=== PATIENT | male | born 1945 | race Two or more races ===

== ENCOUNTER 2017-03-07 10:30 | Inpatient (IN) | payer MEDICARE, OTHER ==
[~2017-03-07] VITALS: Ht 165.1 cm; Wt 63.2 kg
[~2017-03-07 10:30] MED LIST: AMLO-218 PO; ASPI-650 PO; ATEN-51 PO; ATOR40TA21 PO; OMEP20CA16 PO; TAMS-14 PO
[2017-03-07] MEDS ORDERED: SOD CHLORIDE 0.9% 500 ML IV STA (10:35)
--- NOTE | 2017-03-07 10:57 | RADRPT ---
PROCEDURE: CT Brain without. CLINICAL INDICATION: Slurred speech TECHNIQUE: A CT of the brain was performed utilizing axial sections from the skull base through th e vertex without contrast. The scan was reviewed in soft tissue brain and high frequency resolution bone algorithm windows. Images were reviewed on a high-resolution PACS workstation. The exam CTDI = 45.01 mGy, and the DLP = 630.20 mGy-cm. COMPARISON: None available FINDINGS: The ventricles are normal in size and midline in position. There is no intracranial hemorrhage, mid line shift, or mass effect. No abnormal extra-axial fluid collections are identified. There is mil d asymmetric hypoattenuation of the left thalamus. There is hypoattenuation of the right frontal co manolo radiata. The basal cisterns are patent. The posterior fossa is unremarkable. The visualized portions of the orbits are unremarkable. The paranasal sinuses and mastoid air cells are clear. No calvarial fracture or abnormality are identified. The soft tissues are unremarkable . IMPRESSION: 1. Asymmetric hypoattenuation of the left thalamus, suspicious for ischemic changes. Further evalu ation with MRI is recommended. 2. Focal hypoattenuation of the right frontal hector radiata, likely the sequela of prior ischemic injury. This can also be further evaluated with MRI. Critical results were discussed with Dr. Forde on 03/07/2017 at 10:49 AM RPTAT: HH .Malika Solares MD, Date Time Electronically viewed and signed by .Malika Solares MD, MD on 03/07/2017 10:57 .G/
[2017-03-07 10:59] LABS: ADD SCAN DIFF NO
[2017-03-07 11:03] LABS: BASOPHIL # 0.1 10^3/ul (0.0-0.1); BASOPHILS % 0.7 % (0.0-2.0); EOSINOPHILS # 0.3 10^3/ul (0.0-0.5); EOSINOPHILS % 3.4 % (0.0-7.0); HEMATOCRIT 43.3 % (42.0-52.0); HEMOGLOBIN 14.6 g/dl (14.0-18.0); LYMPHOCYTES # 1.5 10^3/ul (0.8-2.9); LYMPHOCYTES % 18.8 % (15.0-51.0); MEAN CORPUSCULAR HEMOGLOBIN 30.7 pg (29.0-33.0); MEAN CORPUSCULAR HGB CONC 33.7 g/dl (32.0-37.0); MEAN PLATELET VOLUME 9.4 fl (7.4-10.4); MONOCYTE # 0.5 10^3/ul (0.3-0.9); MONOCYTES % 6.5 % (0.0-11.0); NEUTROPHIL # 5.7 10^3/ul (1.6-7.5); NEUTROPHILS % 69.9 % (39.0-77.0); PLATELET COUNT 194 10^3/UL (140-415); RED BLOOD COUNT 4.76 10^6/ul (4.70-6.10); RED CELL DISTRIBUTION WIDTH 13.3 % (11.5-14.5); WHITE BLOOD COUNT 8.2 10^3/ul (4.8-10.8)
[2017-03-07 11:22] LABS: ALBUMIN 4.1 g/dl (3.3-4.9); CHLORIDE 102 mmol/L (97-110)
[2017-03-07 11:23] LABS: POTASSIUM 4.1 mmol/L (3.5-5.1); SODIUM 142 mmol/L (135-144)
[2017-03-07 11:25] LABS: ALBUMIN/GLOBULIN RATIO 1.24; ALKALINE PHOSPHATASE 62 IU/L (42-121); ANION GAP 17 (8-16); ASPARTATE AMINO TRANSFERASE 27 IU/L (15-46); BILIRUBIN,INDIRECT 0.9 mg/dl (0-1.1); BILIRUBIN,TOTAL 0.9 mg/dl (0.2-1.3); BLOOD UREA NITROGEN 18 mg/dl (7-20); CARBON DIOXIDE 27 mmol/L (21-31); CREATININE 1.44 mg/dl (0.61-1.24); TOTAL PROTEIN 7.4 g/dl (6.1-8.1)
[2017-03-07 11:26] LABS: ALANINE AMINOTRANSFERASE 35 IU/L (13-69); CALCIUM 9.4 mg/dl (8.4-10.2); GLUCOSE 116 mg/dl (70-220)
[2017-03-07 11:31] LABS: INR 0.98
[2017-03-07] MEDS ORDERED: OMEP40CA6 PO (11:31)
[2017-03-07] MEDS ORDERED: ATEN100T PO (11:31)
[2017-03-07 11:32] LABS: PARTIAL THROMBOPLASTIN TIME 26.4 Sec (25.0-35.0)
[2017-03-07] MEDS ORDERED: TADA5TAB5 PO (11:32)
[2017-03-07] MEDS ORDERED: CLON0.2T5 PO (11:32)
[2017-03-07] MEDS ORDERED: TRAZ50TA18 PO (11:32)
[2017-03-07] MEDS ORDERED: BUPR-34 PO (11:33)
[2017-03-07] MEDS ORDERED: TEMA15CA PO (11:33)
[2017-03-07] MEDS ORDERED: LISI40TA9 PO (11:33)
[2017-03-07] MEDS ORDERED: METO100T13 PO (11:37)
[2017-03-07 11:38] LABS: TROPONIN-I < 0.012 ng/ml (0.00-0.12)
[2017-03-07] MEDS ORDERED: SENN-53 PO (11:38)
--- NOTE | 2017-03-07 11:45 | ERA ---
ER Documentation Chief Complaint Date/Time DATE: 03/07/17 TIME: 11:42 Chief Complaint slurred speech since this morning at 0630, no motor weakness. no droop HPI This 72-year-old male who came in with slurred speech this morning at 630 when he woke up. No motor weakness no droop. Patient says he is slurring his words. It is improved somewhat since the initial problem. Code stroke immediately called. Family at the bedside who corroborates the story. Unknown last well time. He was noted to be normal last night. No chest pain. No other current complaints. ROS All systems reviewed and are negative except as per history of present illness. Medications Home Meds Reported Medications Sennosides* (Senna Lax*) 8.6 Mg Tablet, 1 TAB PO DAILY, TAB 03/07/17 Metoprolol Succinate* (Toprol XL*) 100 Mg Tab.sr.24h, 100 MG PO DAILY, #30 TAB 03/07/17 Bupropion Hcl* (Wellbutrin SR*) 150 Mg Tablet.sa, 150 MG PO DAILY, TAB.SA 03/07/17 Lisinopril* (Lisinopril*) 40 Mg Tablet, 40 MG PO BID, #30 TAB 03/07/17 Temazepam* (Temazepam*) 15 Mg Capsule, 15 MG PO DAILY, CAP 03/07/17 Tadalafil (Cialis) 5 Mg Tablet, 5 MG PO DAILY, TAB 03/07/17 Trazodone Hcl* (Trazodone Hcl*) 50 Mg Tablet, 50 MG PO QHS, #30 TAB 03/07/17 Clonidine Hcl* (Clonidine Hcl*) 0.2 Mg Tablet, 0.2 MG PO DAILY Y for ELEVATED BLOOD PRESSURE, TAB 03/07/17 Omeprazole* (Omeprazole*) 40 Mg Capsule.dr, 40 MG PO DAILY, #30 CAP 03/07/17 Atenolol* (Atenolol*) 100 Mg Tablet, 100 MG PO DAILY, #30 TAB 03/07/17 Atorvastatin (Lipitor) 40 Mg Tablet, 40 MG PO DAILY 07/22/11 Amlodipine Besylate* (Norvasc*) 10 Mg Tablet, 10 MG PO DAILY 07/22/11 Aspirin (Aspirin) 81 Mg Tablet, 81 MG PO DAILY 07/22/11 Tamsulosin Hcl* (Flomax*) 0.4 Mg Cap.sr.24h, 0.4 MG PO DAILY 07/22/11 Discontinued Reported Medications Atenolol* (Atenolol*) 25 Mg Tablet, 25 MG PO DAILY 07/22/11 Omeprazole* (Omeprazole*) 20 Mg Capsule.dr, 20 MG PO DAILY 07/22/11 Allergies Allergies: Coded Allergies: No Known Allergy (Verified , 03/07/17) PMhx/Soc History of Surgery: Yes (S/P CABG 07/23/11) Anesthesia Reaction: No Hx Neurological Disorder: No Hx Respiratory Disorders: No Hx Cardiac Disorders: Yes (HTN) Hx Psychiatric Problems: No Hx Miscellaneous Medical Probl: Yes (HTN, GERD, BPH, Nephrolithiasis, COPD, DVT ) Hx Alcohol Use: Yes (OCCASSIONALLY) Hx Substance Use: No Hx Tobacco Use: Yes (CIGARS 1/2 PACK A DAY) Smoking Status: Current every day smoker Physical Exam Vitals Vital Signs Date Time Temp Pulse Resp B/P Pulse Ox O2 Delivery O2 Flow Rate FiO2 03/07/17 10:55 98.1 83 18 132/83 95 Room Air 03/07/17 10:55 0 03/07/17 10:52 98.1 82 20 132/83 95 Physical Exam Const: [] Head: Atraumatic Eyes: Normal Conjunctiva ENT: Normal External Ears, Nose and Mouth. Neck: Full range of motion..~ No meningismus. Resp: Clear to auscultation bilaterally Cardio: Regular rate and rhythm, no murmurs Abd: Soft, non tender, non distended. Normal bowel sounds Skin: No petechiae or rashes Back: No midline or flank tenderness Ext: No cyanosis, or edema Neur: Awake and alert Psych: Normal Mood and Affect Result Diagram: 03/07/17 1051 03/07/17 1051 Results 24 hrs Laboratory Tests Test 03/07/17 10:51 White Blood Count 8.210^3/ul Red Blood Count 4.7610^6/ul Hemoglobin 14.6g/dl Hematocrit 43.3% Mean Corpuscular Volume 91.0fl Mean Corpuscular Hemoglobin 30.7pg Mean Corpuscular Hemoglobin Concent 33.7g/dl Red Cell Distribution Width 13.3% Platelet Count 83722^3/UL Mean Platelet Volume 9.4fl Neutrophils % 69.9% Lymphocytes % 18.8% Monocytes % 6.5% Eosinophils % 3.4% Basophils % 0.7% Nucleated Red Blood Cells % 0.0/100WBC Neutrophils # 5.710^3/ul Lymphocytes # 1.510^3/ul Monocytes # 0.510^3/ul Eosinophils # 0.310^3/ul Basophils # 0.110^3/ul Nucleated Red Blood Cells # 0.010^3/ul Prothrombin Time 13.0Sec Prothrombin Time Ratio 1.0 INR International Normalized Ratio 0.98 Activated Partial Thromboplast Time 26.4Sec Sodium Level 142mmol/L Potassium Level 4.1mmol/L Chloride Level 102mmol/L Carbon Dioxide Level 27mmol/L Anion Gap 17 Blood Urea Nitrogen 18mg/dl Creatinine 1.44mg/dl Glucose Level 116mg/dl Hemoglobin A1c 5.8% Calcium Level 9.4mg/dl Total Bilirubin 0.9mg/dl Direct Bilirubin 0.00mg/dl Indirect Bilirubin 0.9mg/dl Aspartate Amino Transf (AST/SGOT) 27IU/L Alanine Aminotransferase (ALT/SGPT) 35IU/L Alkaline Phosphatase 62IU/L Troponin I < 0.012ng/ml Total Protein 7.4g/dl Albumin 4.1g/dl Globulin 3.30g/dl Albumin/Globulin Ratio 1.24 Current Medications Medications (Trade) Dose Ordered Sig/Randall Route PRN Reason Start Time Stop Time Status Last Admin Dose Admin Sodium Chloride (NS) 500 ml @ 500 mls/hr Q1H STAT IV 03/07/17 10:35 03/07/17 11:34 DC Procedures/MDM Discuss case with telemetry neuro. Patient not a TPA candidate given onset and timing of symptomology. EKG: Rate/Rhythm: Normal Sinus Rhythm QRS, ST, T-waves: No changes consistent w/ acute ischemia Impression: No evidence of ischemia or arrhythmia Chest X-ray 1V Interpreted by me: Soft Tissue: No acute abnormalities Bones: No acute abnormalities Mediastinum/Cardiac Silhouette/Lungs: No acute abnormalities Medical decision-making: This very pleasant 72-year-old male who has what looks to be a thalamic stroke of uncertain etiology. Patient will be admitted for full stroke workup. Admitted to hospitalist. Critical Care: Time: 45 minutes Treatments/Evaluations: Close monitoring and treatment of unstable vital signs, cardiorespiratory, and neurologic status, while maintaining tight balance of fluid, respiratory, and cardiac interventions. Departure Diagnosis: Primary Impression: Stroke Qualified Code: I63.9 - Cerebrovascular accident (CVA), unspecified mechanism Condition: Serious ANA OCONNOR March 07, 2017 11:45
--- NOTE | 2017-03-07 11:48 | RADRPT ---
PROCEDURE: Chest x-ray CLINICAL INDICATION: Stroke TECHNIQUE: Chest single view COMPARISON: None FINDINGS: There post thoracotomy changes. Mild cardiomegaly and atherosclerotic aortic calcification seen.. The pulmonary vessels are normal in caliber. The lungs are clear. The costophrenic angles are reza p. The visualized bony thorax is unremarkable. IMPRESSION: No acute cardiopulmonary disease. Mild cardiomegaly and atherosclerotic aortic calcification Status post CABG RPTAT: HH .Yannick Mendiola MD, MD Date Time Electronically viewed and signed by .Yannick Mendiola MD, MD on 03/07/2017 11:47 .W/
[2017-03-07 14:00] VITALS: TEMP 98.1
--- NOTE | 2017-03-07 14:12 | RADRPT ---
PROCEDURE: US Carotids. CLINICAL INDICATION: CVA TECHNIQUE: Multiple sonographic of the carotid arteries were obtained utilizing ortiz scale imaging . Color and Doppler imaging was performed. The images were reviewed on a PACS workstation. COMPARISON: No prior studies are available for comparison. FINDINGS: Location Right Left CCA 39 cm/sec 47 cm/sec Prox ICA 56 cm/sec 55 cm/sec Mid ICA 38 cm/sec 54 cm/sec Dist ICA 53 cm/sec 53 cm/sec ECA 83 cm/sec 69 cm/sec ICA/CCA 1.4 1.2 Antegrade flow is seen within the vertebral arteries bilaterally. Mild to moderate scattered plaque is present in the bilateral carotid bulbs, common carotid arteries, and left external carotid artery . No hemodynamically significant stenosis or occlusion is identified. IMPRESSION: 1. Mild to moderate scattered plaque evidence for hemodynamically significant stenosis - validated v elocity measurements with angiographic measurements, velocity criteria are extrapolated from diamete r data as defined by the Society of Radiologists in Ultrasound Consensus Conference Radiology 2003; 229;340-346. This study does indirectly reference the measurement of the distal ICA diameter as the denominator for stenosis measurement. 2. Antegrade flow seen within the vertebral arteries bilaterally. SRU Consensus Conference Criteria for the Diagnosis of Carotid Artery Stenosis Degree of Stenosis, % ICA PSV, cm/sec Plaque Estimate, % ICA/CCA PSV Ratio Normal <125 None <2.0 <50 <125 <50 <2.0 50 69 125-230 >50 2.0-4.0 >70 but less than near occlusion >230 >50 <4.0 Near occlusion High, low, or undetectable Visible Variable Total occlusion Undetectable Visible, no detectable lumen Not applicable *Cartoid artery stenosis: ortiz-scale and Doppler US diagnosis. Society of Radiologists in Ultrasound Consensus Conference. Radiology 2003; 229: 340-346 RPTAT: JJ .John Hampton MD, Date Time Electronically viewed and signed by .John Hampton MD, MD on 03/07/2017 14:12 .A/
[2017-03-07] MEDS: SENNA TAB PO SCH (14:30)
--- NOTE | 2017-03-07 15:43 | HP ---
Date/Time of Note Date/Time of Note DATE: 03/07/17 TIME: 15:27 Assessment/Plan VTE Prophylaxis VTE Prophylaxis Intervention: LMWH Assessment/Plan Assessment/Plan 70-year-old male who presented with slurred speech with the following 1. Highly probable acute left thalamic stroke 2. Probable previous right frontal stroke 3. Known coronary artery disease status post four-vessel CABG 4. Hypertension 5. BPH 6. Depression 7. Dyslipidemia 8. JESSICA rule out chronic kidney disease 9. Tobacco abuse and dependence Plan: 1. We will admit patient to telemetry floor for stroke workup/MRI/2D echo/ neurology consult/aspirin/statin 2. Allow for permissive hypertension. Patient would like his laundry press operator Dr. Seymour to see him while he is here. Will notify him / rule out acute coronary syndrome 3. Resume all other home medications 4. Gentle IV fluid hydration/renally dose all meds/avoid nephrotoxic drugs/if no improvement will do renal ultrasound 5. Smoking Cessation Therapy: Pt. was lectured for greater than 3 minutes on the health risks of continued smoking and the benefits of cessation and this will continue to be reinforced throughout hospitalization. Further interventions will depend on clinical course H2 vidal and subcutaneous Lovenox for prophylaxis Plan of care has been discussed with patient in detail questions have been answered HPI/ROS Admit Date/Time Admit Date/Time March 07, 2017 Hx of Present Illness Presenting complaint: Slurred speech History of presenting complaint: Mr. Dotson is a very interesting 72-year- old male, with a past medical history of high blood pressure, BPH, coronary artery disease status post four-vessel CABG 5 years ago, dyslipidemia and continued heavy tobacco use. The patient tells me that he was in his normal state of health when he went to bed last night, but he awoke at about 6 AM this morning which very slurred speech and speaking in the way people could not understand. He resides with his roommate and when he was communicating with his roommate his roommate noticed that he was yelling more than usual, and he could not understand his speech. His roommate that he was drunk, and eventually able to get out that he might have had a stroke. He however felt that stroke symptoms are more of [employer] findings versus sensory, and hands by the time he had arrived at the emergency room, he was beyond the TPA window. He is being admitted for further stroke workup. Patient does admit to continued tobacco use, even though he has had a history of a four-vessel CABG in the past. He states his 72 and he has done well since. He has no other motor symptoms. He denies fever, denies shortness of breath, denies chest pain , denies palpitations. He has had no falls. He has no motor weakness. He slurred speech has improved somewhat since his being here, but he still mildly present and noticeable on exam. He denies abdominal pain, dysuria, hematuria, denies constipation, denies black stools, denies blood in his stools. ROS 12 point review of system was done and pertinent findings as noted in HPI. PMH/Family/Social Past Medical History 1. High blood pressure 2. BPH 3. Depression 4. Coronary artery disease status post 4 vessel CABG 5. Dyslipidemia 6. Chronic tobacco user Past Surgical History See above Family History Significant Family History: heart disease Social History Patient is a with good family support, states his happiness comes from his grandchildren. Alcohol Use: occasionally Smoking Status: Current every day smoker (Has smoked a pack a day for more than 50 years) Drug Use: none Exam/Review of Systems Vital Signs Vitals VS - Last 72 Hours, by Label Date Time Temp Pulse Resp B/P Pulse Ox O2 Delivery O2 Flow Rate FiO2 03/07/17 14:00 98.1 80 20 157/97 96 Room Air 03/07/17 13:00 98.1 77 20 136/88 95 Room Air 03/07/17 11:46 98.1 80 20 129/95 96 Room Air 03/07/17 10:55 98.1 83 18 132/83 95 Room Air 03/07/17 10:55 0 03/07/17 10:52 98.1 82 20 132/83 95 Vital Signs Date Time Temp Pulse Resp B/P Pulse Ox O2 Delivery O2 Flow Rate FiO2 03/07/17 14:00 98.1 80 20 157/97 96 Room Air 03/07/17 10:55 0 Exam Exam GENERAL: Patient is alert, oriented x 3, in no apparent distress; does not appear acutely or chronically ill. Patient is able to sit up unassisted.Patient makes good eye contact, is conversant, interactive, coherent. Patient appears calm and comfortable and is able to follow commands. HEENT: Oropharynx is clear. There is no carotid bruit, no masses. Patient's pupils are equal, round and reactive to light bilaterally. Extraocular motions are intact. There is no scleral icterus. There is no facial asymmetry. NECK: Supple. LUNGS: Clear to auscultation bilaterally with good air entry. No Wheezes or crackles. HEART: S1, S2. No murmur, gallops or rubs. Regular rate and rhythm. ABDOMEN: Soft, nontender. Normoactive bowel sounds. There are no stigmata of chronic liver disease. BACK: no costovertebral angle tenderness. GENITOURINARY: Deferred. EXTREMITIES: No edema. There is no cyanosis, clubbing. There are 2+ pulses bilaterally distally. NEUROLOGIC: Slight deviation of the angle of the mouth to the left, with left sided facial droop, very mild was noted, and patient continues to have mildly slurred speech. SKIN: Otherwise, unremarkable. Labs Result Diagram: 03/07/17 1051 03/07/17 1051 Medications Medications Current Medications Aspirin (Aspirin) 81 mg DAILY PO ; Start 03/08/17 at 09:00 Atorvastatin Calcium (Lipitor) 40 mg DAILY PO ; Start 03/08/17 at 09:00 Bupropion HCl (Wellbutrin Sr) 150 mg DAILY PO ; Start 03/08/17 at 09:00 Senna (Senokot) 1 tab DAILY PO ; Start 03/07/17 at 14:30 Tamsulosin HCl (Flomax) 0.4 mg QHS PO ; Start 03/07/17 at 21:00 Trazodone HCl (Desyrel) 50 mg QHS PO ; Start 03/07/17 at 21:00 Pantoprazole (Protonix Tab) 40 mg DAILY@06 PO ; Start 03/08/17 at 06:00 Procedures Procedures Laboratory Tests Test 03/07/17 10:51 White Blood Count 8.210^3/ul Red Blood Count 4.7610^6/ul Hemoglobin 14.6g/dl Hematocrit 43.3% Mean Corpuscular Volume 91.0fl Mean Corpuscular Hemoglobin 30.7pg Mean Corpuscular Hemoglobin Concent 33.7g/dl Red Cell Distribution Width 13.3% Platelet Count 46730^3/UL Mean Platelet Volume 9.4fl Neutrophils % 69.9% Lymphocytes % 18.8% Monocytes % 6.5% Eosinophils % 3.4% Basophils % 0.7% Nucleated Red Blood Cells % 0.0/100WBC Neutrophils # 5.710^3/ul Lymphocytes # 1.510^3/ul Monocytes # 0.510^3/ul Eosinophils # 0.310^3/ul Basophils # 0.110^3/ul Nucleated Red Blood Cells # 0.010^3/ul Prothrombin Time 13.0Sec Prothrombin Time Ratio 1.0 INR International Normalized Ratio 0.98 Activated Partial Thromboplast Time 26.4Sec Sodium Level 142mmol/L Potassium Level 4.1mmol/L Chloride Level 102mmol/L Carbon Dioxide Level 27mmol/L Anion Gap 17 Blood Urea Nitrogen 18mg/dl Creatinine 1.44mg/dl Glucose Level 116mg/dl Hemoglobin A1c 5.8% Calcium Level 9.4mg/dl Total Bilirubin 0.9mg/dl Direct Bilirubin 0.00mg/dl Indirect Bilirubin 0.9mg/dl Aspartate Amino Transf (AST/SGOT) 27IU/L Alanine Aminotransferase (ALT/SGPT) 35IU/L Alkaline Phosphatase 62IU/L Troponin I < 0.012ng/ml Total Protein 7.4g/dl Albumin 4.1g/dl Globulin 3.30g/dl Albumin/Globulin Ratio 1.24 PROCEDURE: Chest x-ray CLINICAL INDICATION: Stroke TECHNIQUE: Chest single view COMPARISON: None FINDINGS: There post thoracotomy changes. Mild cardiomegaly and atherosclerotic aortic calcification seen.. The pulmonary vessels are normal in caliber. The lungs are clear. The costophrenic angles are sharp. The visualized bony thorax is unremarkable. IMPRESSION: No acute cardiopulmonary disease. Mild cardiomegaly and atherosclerotic aortic calcification Status post CABG RPTAT: HH .Yannick Mendiola MD, MD Date Time Electronically viewed and signed by .Yannick Mendiola MD, MD on 03/07/2017 11:47 .W/ CC: ANA OCONNOR PROCEDURE: CT Brain without. CLINICAL INDICATION: Slurred speech TECHNIQUE: A CT of the brain was performed utilizing axial sections from the skull base through the vertex without contrast. The scan was reviewed in soft tissue brain and high frequency resolution bone algorithm windows. Images were reviewed on a high-resolution PACS workstation. The exam CTDI = 45.01 mGy, and the DLP = 630.20 mGy-cm. COMPARISON: None available FINDINGS: The ventricles are normal in size and midline in position. There is no intracranial hemorrhage, midline shift, or mass effect. No abnormal extra- axial fluid collections are identified. There is mild asymmetric hypoattenuation of the left thalamus. There is hypoattenuation of the right frontal hector radiata. The basal cisterns are patent. The posterior fossa is unremarkable. The visualized portions of the orbits are unremarkable. The paranasal sinuses and mastoid air cells are clear. No calvarial fracture or abnormality are identified. The soft tissues are unremarkable. IMPRESSION: 1. Asymmetric hypoattenuation of the left thalamus, suspicious for ischemic changes. Further evaluation with MRI is recommended. 2. Focal hypoattenuation of the right frontal hector radiata, likely the sequela of prior ischemic injury. This can also be further evaluated with MRI. Critical results were discussed with Dr. Oconnor on 03/07/2017 at 10:49 AM RPTAT: HH .Malika Solares MD, Date Time Electronically viewed and signed by .Malika Solares MD, MD on 03/07/2017 10 :57 .G/ CC: ANA OCONNOR AnthonyMaylin PROCEDURE: US Carotids. CLINICAL INDICATION: CVA TECHNIQUE: Multiple sonographic of the carotid arteries were obtained utilizing ortiz scale imaging. Color and Doppler imaging was performed. The images were reviewed on a PACS workstation. COMPARISON: No prior studies are available for comparison. FINDINGS: Location Right Left CCA 39 cm/sec 47 cm/sec Prox ICA 56 cm/sec 55 cm/sec Mid ICA 38 cm/sec 54 cm/sec Dist ICA 53 cm/sec 53 cm/sec ECA 83 cm/sec 69 cm/sec ICA/CCA 1.4 1.2 Antegrade flow is seen within the vertebral arteries bilaterally. Mild to moderate scattered plaque is present in the bilateral carotid bulbs, common carotid arteries, and left external carotid artery. No hemodynamically significant stenosis or occlusion is identified. IMPRESSION: 1. Mild to moderate scattered plaque evidence for hemodynamically significant stenosis - validated velocity measurements with angiographic measurements, velocity criteria are extrapolated from diameter data as defined by the Society of Radiologists in Ultrasound Consensus Conference Radiology 2003; 229;340-346. This study does indirectly reference the measurement of the distal ICA diameter as the denominator for stenosis measurement. 2. Antegrade flow seen within the vertebral arteries bilaterally. AUGUSTUS FAUSTIN March 07, 2017 15:37
--- NOTE | 2017-03-07 15:47 | RADRPT ---
PROCEDURE: MRI Brain without contrast. CLINICAL INDICATION: CVA. TECHNIQUE: An MRI of the brain was performed utilizing the following sequences: Sagittal and axial T1 weighted, axial T2 weighted, axial diffusion weighted with ADC mapping, coronal GRE, and axial F LAIR. COMPARISON: Brain CT of the same day. FINDINGS: There is approximately 1.1 cm restricted diffusion in the anterior left thalamus consistent with acu te/recent infarct. Old lacunar infarct is noted in the right frontal hector radiata. There is no evidence of intracranial hemorrhage, mass effect, or midline shift. No extra-axial fluid collections are seen. The ventricles and sulci are mildly enlarged indicative of volume loss. There are additional mild scattered foci of T2 FLAIR hyperintensity in the periventricular, deep, an d subcortical white matter, which are nonspecific in etiology but likely reflect chronic small vesse l ischemic changes. No abnormal intracranial vascular flow void is noted. The visualized paranasal sinuses demonstrate m ild scattered mucosal thickening. IMPRESSION: 1. Acute/recent in anterior left thalamus. No hemorrhagic transformation. 2. Old lacunar infarct in the right frontal hector radiata. 3. Mild chronic small vessel ischemic changes. 4. Mild generalized cerebral volume loss. A call report was made and above findings were discussed and acknowledged by Dr. Lundy from [facility] on 03/07/2017 3:40 PM . RPTAT: HFN .Frank Stacy MD, MD Date Time Electronically viewed and signed by .Frank Stacy MD, MD on 03/07/2017 15:46 .N/
[2017-03-07] MEDS ORDERED: LORAZEPAM 2 MG INJ IV PRN (16:00)
[2017-03-07] MEDS ORDERED: SOD CHLORIDE 0.9% 1,000 ML IV SCH (16:00)
[2017-03-07 16:08] VITALS: BP 159/98; RESP 18
[2017-03-07 16:30] VITALS: PULSE 77
[2017-03-07 16:31] VITALS: Ht 165.1 cm; Wt 63.2 kg
[2017-03-07 19:00] VITALS: BP 162/91; RESP 20
[2017-03-07 20:02] LABS: CREATINE KINASE 48 IU/L (23-200)
[2017-03-07 20:09] VITALS: PULSE 76
[2017-03-07 20:17] LABS: TROPONIN-I < 0.012 ng/ml (0.00-0.12)
[2017-03-07 20:18] LABS: CK-MB 0.73 ng/ml (0.0-2.4)
[2017-03-07] MEDS ORDERED: ACETAMINOPHEN 325 MG TAB PO PRN (21:00)
[2017-03-07] MEDS: TAMSULOSIN (SR) 0.4 MG CAP PO SCH (21:07)
[2017-03-07] MEDS: DOCUSATE SODIUM 100 MG CAP PO SCH (21:07)
[2017-03-07] MEDS: FAMOTIDINE 20 MG TAB PO SCH (21:07)
[2017-03-07] MEDS: traZODone 50 MG TAB PO SCH (21:07)
[2017-03-08] VITALS (13 sets, daily range): BP systolic 139–192; BP diastolic 78–94; PULSE 63–116; RESP 18–20
[2017-03-08 03:55] LABS: ADD SCAN DIFF NO
[2017-03-08 03:57] LABS: BASOPHIL # 0.1 10^3/ul (0.0-0.1); BASOPHILS % 0.9 % (0.0-2.0); EOSINOPHILS # 0.6 10^3/ul (0.0-0.5); HEMATOCRIT 41.9 % (42.0-52.0); HEMOGLOBIN 14.4 g/dl (14.0-18.0); LYMPHOCYTES % 25.2 % (15.0-51.0); MEAN CORPUSCULAR HGB CONC 34.4 g/dl (32.0-37.0); MEAN CORPUSCULAR VOLUME 90.3 fl (82.0-101.0); MEAN PLATELET VOLUME 9.1 fl (7.4-10.4); MONOCYTE # 0.6 10^3/ul (0.3-0.9); NEUTROPHIL # 4.5 10^3/ul (1.6-7.5); NEUTROPHILS % 57.4 % (39.0-77.0); PLATELET COUNT 172 10^3/UL (140-415); RED BLOOD COUNT 4.64 10^6/ul (4.70-6.10); RED CELL DISTRIBUTION WIDTH 13.2 % (11.5-14.5); WHITE BLOOD COUNT 7.9 10^3/ul (4.8-10.8)
[2017-03-08 04:13] LABS: POTASSIUM 3.6 mmol/L (3.5-5.1)
[2017-03-08 04:15] LABS: CREATINE KINASE 47 IU/L (23-200); CREATININE 1.18 mg/dl (0.61-1.24)
[2017-03-08 04:16] LABS: CALCIUM 8.9 mg/dl (8.4-10.2); MAGNESIUM 1.8 mg/dl (1.7-2.5)
[2017-03-08 04:40] LABS: CK-MB 0.79 ng/ml (0.0-2.4); TROPONIN-I < 0.012 ng/ml (0.00-0.12)
[2017-03-08] MEDS: PANTOPRAZOLE (EC) 40 MG TAB PO SCH (06:19)
[2017-03-08 06:25] LABS: THYROID STIMULATING HORMONE 2.35 MIU/L (0.465-4.680)
[2017-03-08 08:08] LABS: ADD UMIC NO; URINE BILIRUBIN (Dip) NEGATIVE (NEGATIVE); URINE BLOOD (Dip) NEGATIVE (NEGATIVE); URINE COLOR LT. YELLOW (YELLOW); URINE GLUCOSE (Dip) NEGATIVE (NEGATIVE); URINE KETONES (Dip) NEGATIVE (NEGATIVE); URINE LEUKOCYTE ESTERASE (Dip) NEGATIVE (NEGATIVE); URINE NITRITE (Dip) NEGATIVE (NEGATIVE); URINE TOTAL PROTEIN (Dip) NEGATIVE (NEGATIVE); URINE UROBILINOGEN (Dip) 0.2 E.U./dL (0.1-1.0)
[2017-03-08] MEDS: ASPIRIN 81 MG TAB PO SCH (08:32)
[2017-03-08] MEDS: SENNA TAB PO SCH (08:32)
[2017-03-08] MEDS: ATORVASTATIN 40 MG TAB PO SCH (08:32)
[2017-03-08] MEDS: DOCUSATE SODIUM 100 MG CAP PO SCH ×2 (08:32→20:58)
[2017-03-08] MEDS: BUPROPION (SR) 150 MG TAB PO SCH (08:32)
[2017-03-08] MEDS: FAMOTIDINE 20 MG TAB PO SCH ×2 (08:33→21:00)
[2017-03-08] MEDS: METOPROLOL 50 MG TAB PO SCH ×2 (08:38→20:59)
[2017-03-08] MEDS: hydrALAzine 20 MG INJ IV PRN (08:38)
[2017-03-08] MEDS: ENOXAPARIN 40 MG/0.4 ML SYG SC SCH (08:48)
--- NOTE | 2017-03-08 12:21 | RADRPT ---
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 Physician: AUGUSTUS FAUSTIN Quality: Adequate Procedures: Transthoracic echocardiogram with complete 2D, M-Mode, and doppler examination. Indications: STROKE. 2D/M Mode Doppler Measurement Value Normal Ranges Measurement Value Normal Ranges LVIDd 2D 4.2 3.5 - 5.6 cm AV Peak Rigo 1.2 m/sec LVIDs 2D 2.9 2.1 - 4.1 cm AV Peak PG 5.7 mmHg LVPWd 2D 1.1 0.6 - 1.1 cm LVOT Peak Rigo 1.2 m/sec IVSd 2D 1.1 0.6 - 1.1 cm LVOT Peak PG 5.5 mmHg AoR Diam 2D 3.1 2.0 - 3.7 cm MV E Peak Rigo 0.6 m/sec EDV 2D 77.9 cm3 MV A Peak Rigo 1.0 m/sec ESV 2D 23.7 cm3 MV E/A 0.6 LA Dimen 2D 3.2 2.3 - 4.0 cm MV Decel Time 292 msec MV Decel Ellsworth 2 MV E/A 0.6 Findings Left Ventricle: Hyperdynamic left ventricular systolic function. Normal left ventricular cavity size. Left ventricular wall thickness upper limits of normal. Ejection fraction is visually estimated at 65 %. Tissue Doppler/Mitral Doppler indices are consistent with impaired relaxation (Stage I diastolic dysfunction). Right Ventricle: Normal right ventricular size. Normal right ventricular systolic function. Left Atrium: The left atrium is normal in size. Right Atrium: The right atrium is normal in size. Mitral Valve: Mild mitral leaflet calcification. Mild mitral annular calcification. Trace mitral regurgitation. Aortic Valve: Normal appearance of the aortic valve. No hemodynamically significant aortic stenosis by doppler. Aortic cusps appear mildly calcified. Trace aortic valve regurgitation. Tricuspid Valve: Tricuspid valve not well visualized. There is trace tricuspid regurgitation. Pulmonic Valve: Pulmonic valve not well visualized. There is trace pulmonic regurgitation. Pericardium: There is an anterior echo free space consistent with epicardial fat pad. Aorta: Normal aortic root. IVC: Normal size and normal respiratory collapse consistent with normal right atrial pressure. Conclusions 1.Hyperdynamic left ventricular systolic function. Normal left ventricular cavity size. Left ventricular wall thickness upper limits of normal. Ejection fraction is visually estimated at 65 %. Tissue Doppler/Mitral Doppler indices are consistent with impaired relaxation (Stage I diastolic dysfunction). 2.Mild mitral leaflet calcification. Mild mitral annular calcification. Trace mitral regurgitation. 3.Normal appearance of the aortic valve. No hemodynamically significant aortic stenosis by doppler. Aortic cusps appear mildly calcified. Trace aortic valve regurgitation. 4.Tricuspid valve not well visualized. There is trace tricuspid regurgitation. Electronically Signed By: Prashant Beck 08-Mar-2017 12:21:23 -0700 Patient Name: ASHLIE CHAVEZ Study Date: 08-Mar-2017 [id number]
--- NOTE | 2017-03-08 13:53 | PN ---
Date/Time of Note Date/Time of Note DATE: 03/08/17 TIME: 13:50 Assessment/Plan VTE Prophylaxis VTE Prophylaxis Intervention: LMWH Lines/Catheters IV Catheter Type (from [facility]): Saline Lock Urinary Cath still in place: No Assessment/Plan Assessment/Plan 1. acute left thalamic CVA 2. Probable previous right frontal stroke 3. Known coronary artery disease status post four-vessel CABG 4. Hypertension 5. BPH 6. Depression 7. Dyslipidemia 8. JESSICA rule out chronic kidney disease 9. Tobacco abuse and dependence Plan; MRI showed acute left thalamic CVA ECHO has been ordered pt is ruled out for ACS PT/OT lovenox for DVT prophylaxis will follow up Subjective 24 Hr Interval Summary Free Text/Dictation MRI showed acute left thalamic infarct Exam/Review of Systems Vital Signs Vitals Vital Signs Date Time Temp Pulse Resp B/P Pulse Ox O2 Delivery O2 Flow Rate FiO2 03/08/17 12:10 81 03/08/17 12:06 98.0 18 167/78 98 03/07/17 14:00 Room Air 03/07/17 10:55 0 Intake and Output 03/07/17 03/07/17 03/08/17 15:00 23:00 07:00 Intake Total 1210 ml Output Total 675 ml Balance 535 ml Exam Constitutional: alert Psych: no complaints Head: normocephalic Neck: supple Respiratory: clear to auscultation Cardiovascular: regular rate and rhythm Gastrointestinal: non-tender, soft Results Result Diagram: 03/08/17 0348 03/08/17 0348 Results 24 hrs Laboratory Tests Test 03/07/17 19:40 03/08/17 03:48 Creatine Kinase 48 47 Creatine Kinase Index 1.5 1.7 Creatinine Kinase MB (Mass) 0.73 0.79 Troponin I < 0.012 < 0.012 White Blood Count 7.9 Red Blood Count 4.64 L Hemoglobin 14.4 Hematocrit 41.9 L Mean Corpuscular Volume 90.3 Mean Corpuscular Hemoglobin 31.0 Mean Corpuscular Hemoglobin Concent 34.4 Red Cell Distribution Width 13.2 Platelet Count 172 Mean Platelet Volume 9.1 Neutrophils % 57.4 Lymphocytes % 25.2 Monocytes % 8.0 Eosinophils % 8.0 H Basophils % 0.9 Nucleated Red Blood Cells % 0.0 Neutrophils # 4.5 Lymphocytes # 2.0 Monocytes # 0.6 Eosinophils # 0.6 H Basophils # 0.1 Nucleated Red Blood Cells # 0.0 Sodium Level 140 Potassium Level 3.6 Chloride Level 103 Carbon Dioxide Level 27 Anion Gap 14 Blood Urea Nitrogen 17 Creatinine 1.18 Glucose Level 94 Hemoglobin A1c 5.8 Calcium Level 8.9 Magnesium Level 1.8 Thyroid Stimulating Hormone (TSH) 2.350 Medications Medications Current Medications Aspirin (Aspirin) 81 mg DAILY PO Last administered on 03/08/17 08:32; Admin Dose 81 MG; Start 03/08/17 at 09:00 Atorvastatin Calcium (Lipitor) 40 mg DAILY PO Last administered on 03/08/17 08 :32; Admin Dose 40 MG; Start 03/08/17 at 09:00 Bupropion HCl (Wellbutrin Sr) 150 mg DAILY PO Last administered on 03/08/17 08 :32; Admin Dose 150 MG; Start 03/08/17 at 09:00 Senna (Senokot) 1 tab DAILY PO Last administered on 03/08/17 08:32; Admin Dose 1 TAB; Start 03/07/17 at 14:30 Tamsulosin HCl (Flomax) 0.4 mg QHS PO Last administered on 03/07/17 21:07; Admin Dose 0.4 MG; Start 03/07/17 at 21:00 Trazodone HCl (Desyrel) 50 mg QHS PO Last administered on 03/07/17 21:07; Admin Dose 50 MG; Start 03/07/17 at 21:00 Pantoprazole (Protonix Tab) 40 mg DAILY@06 PO Last administered on 03/08/17 06 :19; Admin Dose 40 MG; Start 03/08/17 at 06:00 Famotidine (Pepcid) 20 mg BID PO Last administered on 03/08/17 08:33; Admin Dose 20 MG; Start 03/07/17 at 21:00 Docusate Sodium (Colace) 100 mg BID PO Last administered on 03/08/17 08:32; Admin Dose 100 MG; Start 03/07/17 at 21:00 Enoxaparin Sodium (Lovenox) 40 mg DAILY SC Last administered on 03/08/17 08:48 ; Admin Dose 40 MG; Start 03/08/17 at 09:00 Lorazepam (Ativan) 0.5 mg Q8H PRN IV anxiety; Start 03/07/17 at 16:00 Hydralazine HCl (Apresoline) 10 mg Q6H PRN IV SBP GREATER THAN 180 Last administered on 03/08/17 08:38; Admin Dose 10 MG; Start 03/07/17 at 17:30 Acetaminophen (Tylenol Tab) 650 mg Q6H PRN PO PAIN AND OR ELEVATED TEMP Last administered on 03/07/17 21:07; Admin Dose 650 MG; Start 03/07/17 at 21:00 Metoprolol Tartrate (Lopressor) 50 mg BID PO Last administered on 03/08/17 08: 38; Admin Dose 50 MG; Start 03/08/17 at 09:00 ARON BEASLEY MD March 08, 2017 13:53
[2017-03-08] MEDS: TAMSULOSIN (SR) 0.4 MG CAP PO SCH (20:58)
[2017-03-08] MEDS: traZODone 50 MG TAB PO SCH (23:17)
[2017-03-09] VITALS (9 sets, daily range): BP systolic 137–158; BP diastolic 74–94; PULSE 69–105; RESP 18
[2017-03-09] MEDS: PANTOPRAZOLE (EC) 40 MG TAB PO SCH (06:00)
[2017-03-09] MEDS: ASPIRIN 81 MG TAB PO SCH (08:33)
[2017-03-09] MEDS: DOCUSATE SODIUM 100 MG CAP PO SCH ×2 (08:34→20:43)
[2017-03-09] MEDS: BUPROPION (SR) 150 MG TAB PO SCH (08:34)
[2017-03-09] MEDS: SENNA TAB PO SCH (08:34)
[2017-03-09] MEDS: ATORVASTATIN 40 MG TAB PO SCH (08:34)
[2017-03-09] MEDS: METOPROLOL 50 MG TAB PO SCH ×2 (08:34→20:43)
[2017-03-09] MEDS: FAMOTIDINE 20 MG TAB PO SCH (08:34)
[2017-03-09] MEDS: ENOXAPARIN 40 MG/0.4 ML SYG SC SCH (08:37)
[2017-03-09 09:21] LABS: ADD SCAN DIFF NO
[2017-03-09 09:27] LABS: BASOPHIL # 0.1 10^3/ul (0.0-0.1); BASOPHILS % 0.6 % (0.0-2.0); EOSINOPHILS # 0.3 10^3/ul (0.0-0.5); EOSINOPHILS % 3.1 % (0.0-7.0); HEMATOCRIT 46.5 % (42.0-52.0); HEMOGLOBIN 15.8 g/dl (14.0-18.0); LYMPHOCYTES # 1.6 10^3/ul (0.8-2.9); LYMPHOCYTES % 15.2 % (15.0-51.0); MEAN CORPUSCULAR VOLUME 91.2 fl (82.0-101.0); MEAN PLATELET VOLUME 9.7 fl (7.4-10.4); MONOCYTE # 0.6 10^3/ul (0.3-0.9); MONOCYTES % 5.8 % (0.0-11.0); NEUTROPHIL # 7.7 10^3/ul (1.6-7.5); NEUTROPHILS % 74.6 % (39.0-77.0); PLATELET COUNT 214 10^3/UL (140-415); RED CELL DISTRIBUTION WIDTH 13.2 % (11.5-14.5); WHITE BLOOD COUNT 10.3 10^3/ul (4.8-10.8)
[2017-03-09 09:41] LABS: POTASSIUM 4.3 mmol/L (3.5-5.1)
[2017-03-09 09:44] LABS: CREATININE 1.6 mg/dl (0.61-1.24)
[2017-03-09 09:45] LABS: CALCIUM 9.9 mg/dl (8.4-10.2)
[2017-03-09 10:54] LABS: BARBITURATES NEGATIVE (NEGATIVE); BENZODIAZEPINES NEGATIVE (NEGATIVE); CANNABINOIDS NEGATIVE (NEGATIVE); COCAINE NEGATIVE (NEGATIVE); OPIATES NEGATIVE (NEGATIVE)
--- NOTE | 2017-03-09 14:19 | PN ---
Date/Time of Note Date/Time of Note DATE: 03/09/17 TIME: 14:17 Assessment/Plan VTE Prophylaxis VTE Prophylaxis Intervention: LMWH Lines/Catheters IV C[facility]ter Type (from [facility]): Saline Lock Urinary Cath still in place: No Assessment/Plan Assessment/Plan 1. acute left thalamic CVA 2. Probable previous right frontal stroke 3. Known coronary artery disease status post four-vessel CABG 4. Hypertension 5. BPH 6. Depression 7. Dyslipidemia 8. JESSICA rule out chronic kidney disease 9. Tobacco abuse and dependence Plan; MRI showed acute left thalamic CVA ECHO showed EF 65%, Stage I diastolic dysfunction pt is ruled out for ACS PT/OT lovenox for DVT prophylaxis will follow up SNF vs Home health Subjective 24 Hr Interval Summary Free Text/Dictation doing ok, BP stable, afebrile Exam/Review of Systems Vital Signs Vitals Vital Signs Date Time Temp Pulse Resp B/P Pulse Ox O2 Delivery O2 Flow Rate FiO2 03/09/17 12:28 69 03/09/17 12:15 98.0 18 144/94 98 03/07/17 14:00 Room Air 03/07/17 10:55 0 Intake and Output 03/08/17 03/08/17 03/09/17 15:00 23:00 07:00 Intake Total 800 ml Output Total 800 ml Balance 0 ml Exam Constitutional: alert Psych: no complaints Head: normocephalic Neck: supple Respiratory: clear to auscultation Cardiovascular: regular rate and rhythm Gastrointestinal: non-tender, soft Results Result Diagram: 03/09/17 0857 03/09/17 0857 Results 24 hrs Laboratory Tests Test 03/09/17 08:00 03/09/17 08:57 Urine Opiates Screen NEGATIVE Urine Barbiturates NEGATIVE Urine Amphetamines Screen NEGATIVE Urine Benzodiazepines Screen NEGATIVE Urine Cocaine Screen NEGATIVE Urine Cannabinoids NEGATIVE White Blood Count 10.3 # Red Blood Count 5.10 Hemoglobin 15.8 Hematocrit 46.5 Mean Corpuscular Volume 91.2 Mean Corpuscular Hemoglobin 31.0 Mean Corpuscular Hemoglobin Concent 34.0 Red Cell Distribution Width 13.2 Platelet Count 214 # Mean Platelet Volume 9.7 Neutrophils % 74.6 Lymphocytes % 15.2 Monocytes % 5.8 Eosinophils % 3.1 Basophils % 0.6 Nucleated Red Blood Cells % 0.0 Neutrophils # 7.7 H Lymphocytes # 1.6 Monocytes # 0.6 Eosinophils # 0.3 Basophils # 0.1 Nucleated Red Blood Cells # 0.0 Sodium Level 142 Potassium Level 4.3 Chloride Level 102 Carbon Dioxide Level 27 Anion Gap 17 H Blood Urea Nitrogen 21 H Creatinine 1.60 H Glucose Level 195 # Calcium Level 9.9 Medications Medications Current Medications Aspirin (Aspirin) 81 mg DAILY PO Last administered on 03/09/17 08:33; Admin Dose 81 MG; Start 03/08/17 at 09:00 Atorvastatin Calcium (Lipitor) 40 mg DAILY PO Last administered on 03/09/17 08 :34; Admin Dose 40 MG; Start 03/08/17 at 09:00 Bupropion HCl (Wellbutrin Sr) 150 mg DAILY PO Last administered on 03/09/17 08 :34; Admin Dose 150 MG; Start 03/08/17 at 09:00 Senna (Senokot) 1 tab DAILY PO Last administered on 03/09/17 08:34; Admin Dose 1 TAB; Start 03/07/17 at 14:30 Tamsulosin HCl (Flomax) 0.4 mg QHS PO Last administered on 03/08/17 20:58; Admin Dose 0.4 MG; Start 03/07/17 at 21:00 Trazodone HCl (Desyrel) 50 mg QHS PO Last administered on 03/08/17 23:17; Admin Dose 50 MG; Start 03/07/17 at 21:00 Pantoprazole (Protonix Tab) 40 mg DAILY@06 PO Last administered on 03/09/17 06 :00; Admin Dose 40 MG; Start 03/08/17 at 06:00 Famotidine (Pepcid) 20 mg BID PO Last administered on 03/09/17 08:34; Admin Dose 20 MG; Start 03/07/17 at 21:00 Docusate Sodium (Colace) 100 mg BID PO Last administered on 03/09/17 08:34; Admin Dose 100 MG; Start 03/07/17 at 21:00 Enoxaparin Sodium (Lovenox) 40 mg DAILY SC Last administered on 03/09/17 08:37 ; Admin Dose 40 MG; Start 03/08/17 at 09:00 Lorazepam (Ativan) 0.5 mg Q8H PRN IV anxiety; Start 03/07/17 at 16:00 Hydralazine HCl (Apresoline) 10 mg Q6H PRN IV SBP GREATER THAN 180 Last administered on 03/08/17 08:38; Admin Dose 10 MG; Start 03/07/17 at 17:30 Acetaminophen (Tylenol Tab) 650 mg Q6H PRN PO PAIN AND OR ELEVATED TEMP Last administered on 03/07/17 21:07; Admin Dose 650 MG; Start 03/07/17 at 21:00 Metoprolol Tartrate (Lopressor) 50 mg BID PO Last administered on 03/09/17 08: 34; Admin Dose 50 MG; Start 03/08/17 at 09:00 ARON BEASLEY MD March 09, 2017 14:19
[2017-03-09] MEDS: TAMSULOSIN (SR) 0.4 MG CAP PO SCH (20:43)
[2017-03-09] MEDS: traZODone 50 MG TAB PO SCH (20:51)
[2017-03-10 00:04] VITALS: BP 156/72; RESP 18
[2017-03-10 01:06] VITALS: BP 147/103; PULSE 69; RESP 18
[2017-03-10] MEDS: PANTOPRAZOLE (EC) 40 MG TAB PO SCH (06:17)
--- NOTE | 2017-03-10 07:07 | PN ---
DATE: 03/09/2017 CARDIOLOGY FOLLOWUP SUBJECTIVE: Discussed with the staff. Rhythm strip was reviewed, remained in sinus rhythm, sinus t achycardia. No chest pain or pressure, no palpitations, feeling better. MEDICATIONS: As per medication reconciliation, personally reviewed. PHYSICAL EXAMINATION: VITAL SIGNS: Temperature 98, heart rate of 72, blood pressure 137/79, respiratory rate 18, saturati ng 98%. HEENT: Normocephalic, atraumatic. CARDIOVASCULAR: Regular rate and rhythm, systolic murmur. PULMONARY: With no wheezes or rhonchi. GASTROINTESTINAL: Soft, nontender. EXTREMITIES: No significant edema. NEUROLOGIC: Awake, alert. PSYCHIATRIC: Calm. DIAGNOSTIC DATA: MRI of the brain shows acute/recent left thalamic CVA. Old lacunar infarct. ASSESSMENT AND PLAN: 1. Acute cerebrovascular accident. 2. Coronary artery disease. 3. Hypertension. 4. Tachycardia. 5. Smoker. 6. Dyslipidemia. 7. Acute renal insufficiency. RECOMMENDATIONS: We will continue with the current cardiac care. Consider changing the aspirin to Plavix. Consider neurology consultation. Follow up with the recommendations. Dr. Pierre will foll ow up tomorrow. Dictated By: GENEVIEVE RODRIGUES MD AV/NTS Conf#: [id number] DID#: [id number] CC: AUGUSTUS FAUSTIN MD; ARON BEASLEY MD;*End*
--- NOTE | 2017-03-10 07:30 | CONS ---
DATE OF ADMISSION: 03/07/2017 DATE OF CONSULTATION: 03/08/2017 TYPE OF CONSULTATION: Cardiology consultation on behalf of Dr. Carreon and Dr. Pierre REASON FOR CONSULTATION: Coronary artery disease. CHIEF COMPLAINT: Possible cerebrovascular accident, slurred speech. HISTORY OF PRESENT ILLNESS: Thank you for this referral. History from the patient and review of t chart. This is a pleasant 70-year-old [place] gentleman with history of coronary artery disease , status post coronary bypass graft, dyslipidemia, hypertension, and heavy tobacco, use who came in to emergency room with above complaint of slurred speech. The patient was found to have slurred spe ech. Denies any focal weakness. He was brought into the emergency room. By the time he got in he was out of the t-PA window. He has been admitted for further workup. Rhythm strip was reviewed, h rock remained in sinus rhythm. No further atrial fibrillation so far. Currently, is feeling better. Denies any chest pain or pressure to me. Denies any palpitations to me. PAST MEDICAL HISTORY: 1. History of coronary artery disease, status post bypass graft, 4 vessels, about 5 years ago. 2. History of hypertension. 3. BPH. 4. Dyslipidemia 5. Tobacco use. PAST SURGICAL HISTORY: Bypass surgery. FAMILY HISTORY: Positive for coronary artery disease. SOCIAL HISTORY: The patient actively smokes. Is a . Denies drug abuse to me. MEDICATIONS AT HOME: 1. Flomax. 2. Amlodipine. 3. Atenolol 100. 4. Lipitor. 5. Clonidine p.r.n. 6. Lisinopril. 7. Toprol. 8. Cialis. 9. Aspirin. 10. Omeprazole. REVIEW OF SYSTEMS: He denied all other, except for above-mentioned. PHYSICAL EXAMINATION: VITAL SIGNS: Temperature 98.0, heart rate of 81, blood pressure of 192/81, respiratory rate of 18. HEENT: Normocephalic, atraumatic. gentleman in no acute distress. Pupils are equal. CHEST: Status post previous sternotomy. CARDIOVASCULAR: Regular rate and rhythm, systolic murmur. PULMONARY: With no wheezes or rhonchi. GASTROINTESTINAL: Soft, nontender, nondistended. No rebound or guarding. EXTREMITIES: No significant lower extremity edema. NEUROLOGIC: Awake, alert x3. PSYCHIATRIC: Calm and place. DIAGNOSTIC DATA: EKG was personally reviewed, showed normal sinus rhythm with frequent PACs, right bundle branch block. LABORATORY: WBC of 7.9, hemoglobin of 14.4, platelet 172. Sodium 140, potassium 3.6, BUN of 17, cr eatinine 1.14, glucose of 94, magnesium is 1.8. Troponin has been negative x2. TSH is 2.35. CT of the brain shows focal hypoattenuation in the right frontal hector radiata. ASSESSMENT AND PLAN: 1. Cerebrovascular accident appeared to be acute. 2. Hypertension. 3. Coronary artery disease, history of coronary bypass graft. 4. BPH, The patient is a tobacco user. 5. Renal insufficiency has improved. RECOMMENDATIONS: The patient on aspirin and statin already. DVT prophylaxis has been started. Blo od pressure medications have been held to allow for permissive hypertension. The patient has been t achycardic and has been running about 100 at this point. Also, blood pressure is elevated. I will start him on a low dose of metoprolol to be titrated slowly as needed. We will allow for permissive hypertension though. We will check the echocardiogram as well. We will continue to follow along w ith you. Dictated By: GENEVIEVE VALADEZ/BALBINA Conf#: [id number] DID#: [id number]
[2017-03-10 07:45] LABS: ADD SCAN DIFF NO
[2017-03-10 07:50] LABS: BASOPHIL # 0.1 10^3/ul (0.0-0.1); BASOPHILS % 0.7 % (0.0-2.0); EOSINOPHILS # 0.3 10^3/ul (0.0-0.5); EOSINOPHILS % 3.9 % (0.0-7.0); HEMATOCRIT 45.5 % (42.0-52.0); HEMOGLOBIN 15.1 g/dl (14.0-18.0); LYMPHOCYTES # 1.8 10^3/ul (0.8-2.9); LYMPHOCYTES % 20.6 % (15.0-51.0); MEAN CORPUSCULAR HEMOGLOBIN 30.6 pg (29.0-33.0); MEAN CORPUSCULAR HGB CONC 33.2 g/dl (32.0-37.0); MEAN CORPUSCULAR VOLUME 92.3 fl (82.0-101.0); MEAN PLATELET VOLUME 10.1 fl (7.4-10.4); MONOCYTE # 0.6 10^3/ul (0.3-0.9); MONOCYTES % 6.6 % (0.0-11.0); NEUTROPHIL # 5.8 10^3/ul (1.6-7.5); NEUTROPHILS % 67.6 % (39.0-77.0); PLATELET COUNT 173 10^3/UL (140-415); RED BLOOD COUNT 4.93 10^6/ul (4.70-6.10); RED CELL DISTRIBUTION WIDTH 13.6 % (11.5-14.5); WHITE BLOOD COUNT 8.6 10^3/ul (4.8-10.8)
[2017-03-10 08:12] VITALS: BP 158/99; RESP 22
[2017-03-10 08:14] LABS: CALCIUM 9.6 mg/dl (8.4-10.2); CREATININE 1.38 mg/dl (0.61-1.24); POTASSIUM 4.3 mmol/L (3.5-5.1)
[2017-03-10] MEDS: SENNA TAB PO SCH (09:58)
[2017-03-10] MEDS: ATORVASTATIN 40 MG TAB PO SCH (09:58)
[2017-03-10] MEDS: DOCUSATE SODIUM 100 MG CAP PO SCH ×2 (09:58→19:59)
[2017-03-10] MEDS: ASPIRIN 81 MG TAB PO SCH (09:58)
[2017-03-10] MEDS: METOPROLOL 50 MG TAB PO SCH ×2 (10:03→19:58)
[2017-03-10] MEDS: ENOXAPARIN 40 MG/0.4 ML SYG SC SCH (10:15)
[2017-03-10] MEDS: BUPROPION (SR) 150 MG TAB PO SCH (10:40)
--- NOTE | 2017-03-10 11:06 | PN ---
Date/Time of Note Date/Time of Note DATE: 03/10/17 TIME: 11:03 Assessment/Plan VTE Prophylaxis VTE Prophylaxis Intervention: SCD's Lines/Catheters IV Catheter Type (from [facility]): Saline Lock Urinary Cath still in place: No Assessment/Plan Chief Complaint/Hosp Course Assessment and plan 1. Acute left thalamic CVA. Neurologist consulted. Await recommendations. Will also get physical therapy to follow the patient. 2. History of CAD with CABG. Continue on aspirin and statin medication. Of note last echocardiogram did show EF of 65% with stage I diastolic dysfunction. 3. Essential hypertension. Continue antihypertensives and adjust as needed 4. Dyspnea. Continue on statin medication 5. History of BPH. Continue on Flomax 6. Major depression. Continue on Wellbutrin DVT prophylaxis: Lovenox GERD prophylaxis: PPI Disposition and plan: Neurologist to follow. Await physical therapy evaluation. Discharge when medically stable and cleared by consultants Discussed plan of care with Dr. Teixeira Problems: Subjective 24 Hr Interval Summary Free Text/Dictation Reports having some upper extremity bilateral weakness. Little worse today Exam/Review of Systems Vital Signs Vitals Vital Signs Date Time Temp Pulse Resp B/P Pulse Ox O2 Delivery O2 Flow Rate FiO2 03/10/17 08:12 98.4 84 22 158/99 98 03/10/17 01:06 Room Air 03/07/17 10:55 0 Intake and Output 03/09/17 03/09/17 03/10/17 14:59 22:59 06:59 Intake Total 800 ml Output Total 1000 ml Balance -200 ml Exam Constitutional: alert, oriented Psych: nl mood/affect Head: normocephalic Neck: supple, No jvd Respiratory: clear to auscultation Cardiovascular: regular rate and rhythm Gastrointestinal: non-tender, soft Extremities: normal pulses Neurological: nl mental status, nl speech Results Result Diagram: 03/10/17 0642 03/10/17 0642 Results 24 hrs Laboratory Tests Test 03/10/17 06:42 White Blood Count 8.6 Red Blood Count 4.93 Hemoglobin 15.1 Hematocrit 45.5 Mean Corpuscular Volume 92.3 Mean Corpuscular Hemoglobin 30.6 Mean Corpuscular Hemoglobin Concent 33.2 Red Cell Distribution Width 13.6 Platelet Count 173 Mean Platelet Volume 10.1 Neutrophils % 67.6 Lymphocytes % 20.6 Monocytes % 6.6 Eosinophils % 3.9 Basophils % 0.7 Nucleated Red Blood Cells % 0.0 Neutrophils # 5.8 Lymphocytes # 1.8 Monocytes # 0.6 Eosinophils # 0.3 Basophils # 0.1 Nucleated Red Blood Cells # 0.0 Sodium Level 140 Potassium Level 4.3 Chloride Level 106 Carbon Dioxide Level 28 Anion Gap 10 # Blood Urea Nitrogen 21 H Creatinine 1.38 H Glucose Level 106 # Calcium Level 9.6 Medications Medications Current Medications Aspirin (Aspirin) 81 mg DAILY PO Last administered on 03/10/17 09:58; Admin Dose 81 MG; Start 03/08/17 at 09:00 Atorvastatin Calcium (Lipitor) 40 mg DAILY PO Last administered on 03/10/17 09 :58; Admin Dose 40 MG; Start 03/08/17 at 09:00 Bupropion HCl (Wellbutrin Sr) 150 mg DAILY PO Last administered on 03/10/17 10 :40; Admin Dose 150 MG; Start 03/08/17 at 09:00 Senna (Senokot) 1 tab DAILY PO Last administered on 03/10/17 09:58; Admin Dose 1 TAB; Start 03/07/17 at 14:30 Tamsulosin HCl (Flomax) 0.4 mg QHS PO Last administered on 03/09/17 20:43; Admin Dose 0.4 MG; Start 03/07/17 at 21:00 Trazodone HCl (Desyrel) 50 mg QHS PO Last administered on 03/09/17 20:51; Admin Dose 50 MG; Start 03/07/17 at 21:00 Pantoprazole (Protonix Tab) 40 mg DAILY@06 PO Last administered on 03/10/17 06 :17; Admin Dose 40 MG; Start 03/08/17 at 06:00 Docusate Sodium (Colace) 100 mg BID PO Last administered on 03/10/17 09:58; Admin Dose 100 MG; Start 03/07/17 at 21:00 Enoxaparin Sodium (Lovenox) 40 mg DAILY SC Last administered on 03/10/17 10:15 ; Admin Dose 40 MG; Start 03/08/17 at 09:00 Lorazepam (Ativan) 0.5 mg Q8H PRN IV anxiety; Start 03/07/17 at 16:00 Hydralazine HCl (Apresoline) 10 mg Q6H PRN IV SBP GREATER THAN 180 Last administered on 03/08/17 08:38; Admin Dose 10 MG; Start 03/07/17 at 17:30 Acetaminophen (Tylenol Tab) 650 mg Q6H PRN PO PAIN AND OR ELEVATED TEMP Last administered on 03/07/17 21:07; Admin Dose 650 MG; Start 03/07/17 at 21:00 Metoprolol Tartrate (Lopressor) 50 mg BID PO Last administered on 03/10/17 10: 03; Admin Dose 50 MG; Start 03/08/17 at 09:00 PHILIP WAITE March 10, 2017 11:06
[2017-03-10 20:00] VITALS: BP 170/94; RESP 16
[2017-03-10] MEDS: TAMSULOSIN (SR) 0.4 MG CAP PO SCH (20:00)
--- NOTE | 2017-03-10 20:35 | CONS ---
Date/Time of Note Date/Time of Note DATE: 03/10/17 TIME: 20:33 Assessment/Plan Assessment/Plan Chief Complaint/Hosp Course CVA, clinically resolved. OK to d/c. Full note to be dictated. Problems: Consultation Date/Type/Reason Admit Date/Time March 07, 2017 Type of Consultation: neurology Psychological: nl mood/affect NAHUM PINEDA MD March 10, 2017 20:35
[2017-03-10] MEDS: traZODone 50 MG TAB PO SCH (21:00)
[2017-03-10] MEDS: hydrALAzine 20 MG INJ IV PRN (21:04)
[2017-03-10 21:40] VITALS: BP 155/89; PULSE 70
--- NOTE | 2017-03-10 23:24 | CONS ---
DATE OF ADMISSION: 03/07/2017 DATE OF CONSULTATION: 03/10/2017 TYPE OF CONSULTATION: Neurology. Thank you, Dr. Jefferson, for your kind referral for evaluation of acute stroke. HISTORY OF PRESENT ILLNESS: The patient is a 72-year-old gentleman with extensive past medical hist ory of coronary artery disease status post CABG 5 years ago, hypertension, dyslipidemia, benign pros tatic hypertrophy, tobacco abuse who presented with acute onset of slurred speech as well as mild le ft facial droop. The patient had MRI of the brain, which showed acute stroke in the anterior left t halamus, as well as old infarct in the right hector radiata. Carotid ultrasound did not show any he modynamically significant lesions. EKG: Sinus rhythm. Echocardiogram: Ejection fraction of 65. The patient's slurred speech has resolved after about 2 days and now he has no complaints with excep tion of occasional word finding difficulties, very mild. MEDICATIONS PRIOR TO ADMISSION: 1. Flomax. 2. Norvasc. 3. Atenolol. 4. Lipitor 40. 5. Lisinopril. 6. Metoprolol. 7. Cialis. 8. Aspirin 81 mg. 9. Wellbutrin. 10. Temazepam. 11. Trazodone. 12. Omeprazole. 13. Senokot. CURRENT MEDICATIONS: 1. Aspirin. 2. Lipitor, still 40. 3. Wellbutrin. 4. Lovenox. 5. Lopressor. 6. Protonix. 7. Flomax. 8. Trazodone. 9. Ativan as needed. ALLERGIES: NONE. SOCIAL HISTORY: Cigarette smoker, social alcohol use. He smokes a pack per day more than 50 years, claims to quit 4 days ago after the stroke. No drug use. FAMILY HISTORY: Noncontributory. ALLERGIES: NONE. PHYSICAL EXAMINATION: VITAL SIGNS: Today, 98.4 temperature, pulse 84, respirations 22, 158/99 blood pressure. GENERAL: Not in acute distress, lying in bed. HEENT: Normocephalic, atraumatic head. NECK: No carotid bruits. No thyromegaly. LUNGS: Clear to auscultation bilaterally. CARDIAC: Normal cardiac rhythm and sounds. ABDOMEN: Soft, nontender. EXTREMITIES: No cyanosis, clubbing, or edema. NEUROLOGIC: He is awake, alert, and oriented x3 with fluent speech. Normal naming and repetition. I do not notice any word finding difficulties. Preserved visual garcia bilaterally. Pupils reacti ve to light from 3 to 2 mm bilaterally. Extraocular movements intact without nystagmus. Symmetrica l face. Preserved facial strength and sensation. Tongue is in midline. Palate elevates symmetrica lly. Motor strength examination seems to be preserved in all extremities. Normal bulk, tone, and s trength. Sensory examination intact to light touch and pain. Deep tendon reflexes 2+ throughout. Downgoing toes bilaterally. Coordination preserved on [id number] testing. No dysmetria or tr emor. Gait within normal limits. IMPRESSION: Status post acute lacunar left thalamic ischemic stroke in patient with hypertension, d yslipidemia by history, coronary artery disease, and history of severe smoking. The patient's symptoms of strokes have resolved. He is adamant to leave the hospital. It is okay f rom my perspective. He should be continued on aspirin and statins. Dose of statin could be increas ed to 80 mg. If okay with the patient's outpatient activities aide, Dr. Carreon, maybe his aspirin coul d be switched to Plavix. Keep normotensive, euglycemic. The patient claims that he quit smoking a few days ago already. Hopefully, he will continue not to smoke to alleviate such a risk factor for strokes. Thank you very much for this interesting consultation. Dictated By: NAHUM MackenzieV/NTS Conf#: [id number] DID#: [id number] CC: ANA JEFFERSON MD; AUGUSTUS FAUSTIN MD;*End*
== END 2017-03-10 22:20 | disposition left against medical advice (07) | DRG 65 ==
LOC: E/R 10:30 → TEL 12:11 → MS2 03-10 00:50
PROVIDERS: ADMIT Family Medicine; ATTEND Family Medicine
DX: I63.9 Cerebral infarction, unspecified (principal); N17.9 Acute kidney failure, unspecified; I25.10 Atherosclerotic heart disease of native coronary artery without angina pectoris; I10 Essential (primary) hypertension; N40.0 Benign prostatic hyperplasia without lower urinary tract symptoms; E78.5 Hyperlipidemia, unspecified; F32.9 Major depressive disorder, single episode, unspecified; F17.210 Nicotine dependence, cigarettes, uncomplicated; Z71.6 Tobacco abuse counseling; R47.81 Slurred speech; R29.810 Facial weakness; R47.01 Aphasia; R29.701 NIHSS score 1; Z79.82 Long term (current) use of aspirin; Z95.1 Presence of aortocoronary bypass graft
CPT/HCPCS: 70450; 70551; 71010; 80048; 80053; 80307; 81003; 82550; 82553; 83036; 83735; 84443; 84484; 85025; 85610; 85730; 92610; 93005; 93306; 93880; 97162; J0360; J1650; J7030; J7040